=== PATIENT | male | born 1990 | race African-American/Black ===

== ENCOUNTER 2020-11-30 09:44 | Outpatient (CLI) | payer MEDICARE, MEDICAID | END 2020-11-30 09:45 | disposition home or self-care (01) | LOC: CSHCT 09:44 | PROVIDERS: ATTEND Physician Assistant Medical | DX: R10.11 Right upper quadrant pain (principal); K21.9 Gastro-esophageal reflux disease without esophagitis; K76.0 Fatty (change of) liver, not elsewhere classified | CPT/HCPCS: 74160 ==